=== PATIENT | male | born 1980 | race Caucasian/White ===

== ENCOUNTER 2020-01-11 17:53 | Emergency (ER) | payer BC ==
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
[2020-01-11 18:36] LABS: CHLORIDE,CL 99 mEq/L (98-106); SODIUM,NA 137 mEq/L (136-145)
== END 2020-01-11 19:26 ==
LOC: CC.ED 17:53
DX: M71.161 Other infective bursitis, right knee (principal); I10 Essential (primary) hypertension; Z91.030 Bee allergy status; Z79.899 Other long term (current) drug therapy
CPT/HCPCS: 36415; 73562-RT; 80053; 83605; 84550; 85025; 85652; 86140; 99284-25